=== PATIENT | male | born 1985 | race Caucasian/White ===

== ENCOUNTER 2018-01-30 15:44 | Emergency (ER) | payer MEDICAID ==
[~2018-01-30] VITALS: Ht 188 cm; Wt 108.9 kg
[2018-01-30 16:00] VITALS: BP 153/94
--- NOTE | 2018-01-30 16:02 | NUR ---
PATIENT PRESENTS TO ED WITH C/O PRODUCTIVE COUGH X 2 DAYS HX; HTN, ASTHMA RX; LISINOPRIL, ALBUTEROL DENIES N/V/D; SKIN IS PINK/WARM/DRY; AAOX4 WITH EVEN AND STEADY GAIT; LUNGS CLEAR BL; HR EVEN AND REGULAR; PT DENIES ANY FEVER, CP OR SOB AT THIS TIME; PATIENT STATES PAIN OF 0/10 AT THIS TIME; VSS; PATIENT POSITIONED FOR COMFORT; HOB ELEVATED; BEDRAILS UP X2; BED DOWN. ER MD MADE AWARE OF PT STATUS.
--- NOTE | 2018-01-30 16:04 | NUR ---
PT AMBULATES TO BED 11
[2018-01-30 16:40] VITALS: BP 132/79
--- NOTE | 2018-01-30 16:40 | NUR ---
Patient discharged with v/s stable. Written and verbal after care instructions given and explained. Patient alert, oriented and verbalized understanding of instructions. Ambulatory with steady gait. All questions addressed prior to discharge. ID band removed. Patient advised to follow up with PMD. Rx of Z-BLAYNE/IBUPROFEN given. Patient educated on indication of medication including possible reaction and side effects. Opportunity to ask questions provided and answered.
== END 2018-01-30 16:40 | disposition home or self-care (01) ==
LOC: MED 15:44
DX: J20.9 Acute bronchitis, unspecified (principal); J45.909 Unspecified asthma, uncomplicated; I10 Essential (primary) hypertension; F17.210 Nicotine dependence, cigarettes, uncomplicated
CPT/HCPCS: 99283